=== PATIENT | female | born 1955 | race African-American/Black ===

== ENCOUNTER 2018-06-26 13:50 | Emergency (ER) | payer SELFPAY ==
[~2018-06-26] VITALS: Ht 157.5 cm; Wt 72.6 kg
--- NOTE | 2018-06-26 14:09 | NUR ---
ED Nurse Note: PT WALKED IN TO ER TODAY FROM HOME. AOX4. PT C/O WORSENING RIGHT SIDED SCIATICA PAIN, 01/16 X 2 WEEKS AGO. PT STATES SHE WAS DX'D 10 YEARS AGO. PT STATES SHE WAS HAVING HEADACHES BUT DENIES HEADACHE AT THIS TIME. GAIT STEADY. PT DENIES DIZZINESS, NAUSEA, OR VOMITING. CIRCULATION AND SENSATION INTACT. CAP REFILL <3 SECONDS AND FULL ROM OF EXTREMITY.
[2018-06-26 14:11] VITALS: BP 122/86
--- NOTE | 2018-06-26 14:42 | Emergency Room Report ---
History of Present Illness General Chief Complaint: Pain Source: Patient Present Illness HPI This patient states that she has a history of sciatica. She states that she gets regular flareups. She states that this flareup is been going on for about 2 weeks. She states she's been using topical products such as [place] balm and Aspercreme. She states this is not working. She denies any new symptoms. Weakness. She denies tingling or numbness. She states she would also like a refill on her lisinopril a she has been out for 3 months. She denies trauma or recent illness. She denies fever or chills. She has no other complaints. Allergies: Coded Allergies: MORPHINE (Verified Allergy, Unknown, 06/26/18) hallucinations Patient History Past Medical History: see triage record, HTN Social History: Denies: smoking, alcohol use, drug use Last Menstrual Period: na Now: No Reviewed Nursing Documentation: PMH: Agreed; PSxH: Agreed Nursing Documentation-PMH Past Medical History: No History, Except For Hx Hypertension: Yes Hx Neurological Problems: Yes - sciatica, migraines Review of Systems All Other Systems: negative except mentioned in HPI Physical Exam Vital Signs Date Time Temp Pulse Resp B/P (MAP) Pulse Ox O2 Delivery O2 Flow Rate FiO2 06/26/18 13:58 98.1 68 18 123/83 98 Room Air Sp02 EP Interpretation: reviewed, normal General Appearance: no apparent distress, alert, GCS 15, non-toxic Head: normocephalic, atraumatic Eyes: bilateral eye normal inspection, bilateral eye PERRL ENT: hearing grossly normal, normal pharynx, no angioedema, normal voice Neck: full range of motion, supple/symm/no masses Respiratory: no respiratory distress, no retraction, no accessory muscle use, speaking full sentences Rectal: deferred Musculoskeletal: gait/station normal, normal range of motion, non-tender Neurologic: alert, oriented x3, responsive, motor strength/tone normal, sensory intact, speech normal Psychiatric: judgement/insight normal, memory normal, mood/affect normal, no suicidal/homicidal ideation Skin: normal color, no rash, warm/dry, well hydrated Medical Decision Making Diagnostic Impression: Primary Impression: Sciatica ER Course This patient has a clinical presentation consistent with mechanical back pain/ sciatica. There are no red flags on physical exam. The patient denies any concerning features such as trauma, fevers, night sweats, history of malignancy , pain worse at night, IV drug abuse, urinary/fecal incontinence or retention, focal weakness or change in sensation, or refractory pain. Given these pertinent negatives in the history and physical exam an emergent cause of the back pain such as epidural abscess, metastasis to bone, cauda equina syndrome, and fracture is less likely. I also doubt emergent cardiovascular cause of back pain such as aortic dissection a ruptured abdominal aortic aneurysm given patient with equal pulses in all 4 extremities with no diastolic murmur or pulsatile abdominal mass. The patient was counseled that, though unlikely, the possibility of an emergent cause of back pain may still be present and that the patient should return immediately if symptoms persist or worsen. The symptoms are reproducible with movement. Patient had a benign evaluation and neurologic examination. No emergency etiology was identified. Last Vital Signs Date Time Temp Pulse Resp B/P (MAP) Pulse Ox O2 Delivery O2 Flow Rate FiO2 06/26/18 14:11 98.4 72 17 122/86 99 Room Air Disposition: HOME, SELF-CARE Condition: Stable Fabiola Harmon DO Jun 26, 2018 14:42
--- NOTE | 2018-06-26 14:44 | NUR ---
Note darwin in EDM - 06/26/18 at 1444 by BRENNA ED Nurse Note: PT SITTING PEACEFULLY IN BED IN NAD. AOX4. PRESCRIPTIONS AND DISCHARGE PAPERWORK EXPLAINED TO PT. PT VERBALIZES UNDERSTANDING AND ALL QUESTIONS ANSWERED. PRESCRIPTIONS AND DISCHARGE PAPERWORK GIVEN TO PT, IV AND ID WRISTBAND REMOVED. PT WALKED OUT OF ER WITH STEADY GAIT AND ALL BELONGINGS.
[2018-06-26 14:45] VITALS: BP 126/84
[2018-06-26] MEDS ORDERED: LISINOPRIL10 MG ORAL (14:52)
[2018-06-26] MEDS ORDERED: SOMA350 MG PO (14:52)
[2018-06-26] MEDS ORDERED: ACETAMINOPHEN-1 EAC1 ORAL (14:52)
--- NOTE | 2018-06-26 15:01 | NUR ---
ED Nurse Note: PT SITTING PEACEFULLY IN BED IN NAD. AOX4. PRESCRIPTIONS AND DISCHARGE PAPERWORK EXPLAINED TO PT. PT VERBALIZES UNDERSTANDING AND ALL QUESTIONS ANSWERED. PRESCRIPTIONS AND DISCHARGE PAPERWORK GIVEN TO PT AND ID WRISTBAND REMOVED. PT WALKED OUT OF ER WITH STEADY GAIT AND ALL BELONGINGS.
== END 2018-06-26 15:01 | disposition home or self-care (01) ==
LOC: EMR 14:38
DX: M54.30 Sciatica, unspecified side (principal); R53.1 Weakness; Z88.6 Allergy status to analgesic agent; I10 Essential (primary) hypertension
CPT/HCPCS: 99282